=== PATIENT | female | born 2000 | race Caucasian/White ===

== ENCOUNTER 2023-05-15 07:33 | Outpatient (CLI) | payer OTHER, SELFPAY ==
--- NOTE | 2023-05-15 08:00 | CT_ITS ---
Patient: BIA BARNETT Facility:?[facility] RIS Patient ID:?[id number] Site Patient ID:?[id number]. Site :?[id number] Study:?CT-ST Neck 114CC ISOVUE 370-05/15/2023 8:31:56 AM Ordering Physician:?DR. RESENDIZ Final Report: INDICATION: Right neck mass noticed in January. Pain on and off. TECHNIQUE: CT of the neck with 114 ml iodinated contrast agent. Coronal and sagittal reconstructions are included. COMPARISON: None FINDINGS: There is a 2 x 1.2 x 2.3 cm heterogeneously enhancing right thyroid mass concerning for neoplasm. Cystic enhancing masses in the right supraclavicular region measuring up to 2.4 x 1.5 cm and 1.5 x 1.1 cm concerning for necrotic metastatic lymph nodes, potentially thyroid origin. Bulky right supraclavicular node measuring up to 3 x 2.1 cm with mild mass effect on the internal jugular vein (series 3, image 55). Bulky bilateral superior mediastinal mell masses narrows the left brachiocephalic vein,, and narrows the right internal jugular vein encases the left internal mammary artery (series 3, image 72) The oral cavity, nasopharyngeal, oropharyngeal and hypopharyngeal mucosal spaces are normal. No periapical dental disease. The supraglottic, glottic and infraglottic larynx are normal. The airway including the trachea is normal and is patent. The parotid glands, submandibular and sublingual glands are normal in appearance. The vascular structures opacify normally with contrast material. Scattered mild cervical spondylosis without significant neural foraminal stenosis. No suspicious lytic or blastic osseous lesions. Visualized paranasal sinuses and mastoid air cells are clear. Visualized orbital and intracranial contents are normal. Left nare piercing. Supraclavicular regions, mediastinum and soft tissues of the imaged chest wall are normal. Visualized portions of the upper lungs are clear. IMPRESSION: 1. 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 2. There is a 2 cm heterogeneously enhancing right thyroid mass concerning for neoplasm. 3. Bulky superior mediastinal lymphadenopathy likely represents a conglomeration of pathologic lymph nodes, as well as in the right supraclavicular region. The metastatic lymph nodes may be secondary to thyroid e cancer primary or lymphoma. The mell masses exert mass effect on the right internal jugular vein, left brachiocephalic vein, and encase the left internal mammary artery. Please note that all CT scans at this facility use dose modulation, iterative reconstruction, and/or weight-based dosing when appropriate to reduce radiation dose to as low as reasonably achievable. Dictated by Sean Aranda MD @ 05/15/2023 4:45:46 PM Signed by:?Sean Aranda MD @05/15/2023 4:45:46 PM (Electronic Signature)
== END 2023-05-15 07:34 | disposition home or self-care (01) ==
DX: R22.1 Localized swelling, mass and lump, neck (principal); D64.9 Anemia, unspecified
CPT/HCPCS: 70491; Q9967

== ENCOUNTER 2023-11-09 18:25 | Outpatient (RCR) | payer OTHER, SELFPAY ==
[2023-08-31 09:03] LABS: Hematocrit 33.7 % (33.0-51.0); Hemoglobin* 10.3 gm/dL (12.0-16.0); Immature Granulocytes Abs Auto 0.01 K/uL (0.00-0.30); Immature Granulocytes Pct Auto 0.2 %; Lymphocytes Absolute Auto 1.82 K/uL (0.90-2.90); Mean Corpuscular HGB Conc 31 gm/dL (32-36); Mean Corpuscular Hemoglobin 28 pg (26-34); Mean Corpuscular Volume 90 fL (80-100); RDW Coefficient of Variation % 14.3 % (11.5-15.5); Red Blood Count 3.75 m/uL (4.00-5.20); White Blood Count* 4.69 K/uL (4.50-11.00)
[2023-08-31 09:11] LABS: Slide Review Reflex No
[2023-09-14 13:02] LABS: Hematocrit 32.8 % (33.0-51.0); Hemoglobin* 10.4 gm/dL (12.0-16.0); Immature Granulocytes Abs Auto 0.05 K/uL (0.00-0.30); Immature Granulocytes Pct Auto 0.9 %; Lymphocytes Absolute Auto 2.36 K/uL (0.90-2.90); Mean Corpuscular HGB Conc 32 gm/dL (32-36); Mean Corpuscular Hemoglobin 28 pg (26-34); Mean Corpuscular Volume 89 fL (80-100); RDW Coefficient of Variation % 14.5 % (11.5-15.5); Red Blood Count 3.70 m/uL (4.00-5.20); White Blood Count* 5.62 K/uL (4.50-11.00)
[2023-09-14 13:16] LABS: Slide Review Reflex No
[2023-09-26 18:16] LABS: Hematocrit 30.5 % (33.0-51.0); Hemoglobin* 9.6 gm/dL (12.0-16.0); Immature Granulocytes Pct Auto 0.3 %; Mean Corpuscular HGB Conc 32 gm/dL (32-36); Mean Corpuscular Hemoglobin 28 pg (26-34); Mean Corpuscular Volume 88 fL (80-100); RDW Coefficient of Variation % 14.6 % (11.5-15.5); Red Blood Count 3.46 m/uL (4.00-5.20); White Blood Count* 3.19 K/uL (4.50-11.00)
[2023-09-26 18:26] LABS: Immature Granulocytes Abs Auto 0.00 K/uL (0.00-0.30); Lymphocytes Absolute Auto 1.70 K/uL (0.90-2.90); Slide Review Reflex No
[2023-10-13 08:52] LABS: Hematocrit 33.5 % (33.0-51.0); Hemoglobin* 10.6 gm/dL (12.0-16.0); Immature Granulocytes Abs Auto 0.04 K/uL (0.00-0.30); Immature Granulocytes Pct Auto 0.7 %; Lymphocytes Absolute Auto 1.78 K/uL (0.90-2.90); Mean Corpuscular HGB Conc 32 gm/dL (32-36); Mean Corpuscular Hemoglobin 28 pg (26-34); Mean Corpuscular Volume 88 fL (80-100); RDW Coefficient of Variation % 15.8 % (11.5-15.5); Red Blood Count 3.79 m/uL (4.00-5.20); White Blood Count* 5.52 K/uL (4.50-11.00)
[2023-10-13 08:55] LABS: Slide Review Reflex No
[2023-10-26 17:12] LABS: Hematocrit 31.0 % (33.0-51.0); Hemoglobin* 9.9 gm/dL (12.0-16.0); Immature Granulocytes Pct Auto 0.3 %; Mean Corpuscular HGB Conc 32 gm/dL (32-36); Mean Corpuscular Hemoglobin 28 pg (26-34); Mean Corpuscular Volume 87 fL (80-100); RDW Coefficient of Variation % 15.5 % (11.5-15.5); Red Blood Count 3.55 m/uL (4.00-5.20); White Blood Count* 3.01 K/uL (4.50-11.00)
[2023-10-26 17:18] LABS: Immature Granulocytes Abs Auto 0.00 K/uL (0.00-0.30); Lymphocytes Absolute Auto 1.60 K/uL (0.90-2.90); Slide Review Reflex No
[2023-11-09 18:57] LABS: Hematocrit 31.6 % (33.0-51.0); Hemoglobin* 10.0 gm/dL (12.0-16.0); Immature Granulocytes Pct Auto 0.7 %; Mean Corpuscular HGB Conc 32 gm/dL (32-36); Mean Corpuscular Hemoglobin 28 pg (26-34); Mean Corpuscular Volume 88 fL (80-100); RDW Coefficient of Variation % 15.8 % (11.5-15.5); Red Blood Count 3.59 m/uL (4.00-5.20); White Blood Count* 4.32 K/uL (4.50-11.00)
[2023-11-09 19:07] LABS: Immature Granulocytes Abs Auto 0.00 K/uL (0.00-0.30); Lymphocytes Absolute Auto 2.20 K/uL (0.90-2.90); Slide Review Reflex No
== END 2024-10-13 23:59 | disposition home or self-care (01) ==
LOC: LAB 18:25
PROVIDERS: Visit Provider Internal Medicine Hematology
DX: C81.11 Nodular sclerosis Hodgkin lymphoma, lymph nodes of head, face, and neck (principal); Z79.899 Other long term (current) drug therapy
CPT/HCPCS: 36415; 85025

== ENCOUNTER 2023-11-27 09:02 | Outpatient (CLI) | payer OTHER, SELFPAY ==
[2023-12-11 17:39] LABS: Pap Test Reviewed by Path Done
== END 2023-11-27 09:03 | disposition home or self-care (01) ==
PROVIDERS: Visit Provider Obstetrics & Gynecology
DX: Z01.419 Encounter for gynecological examination (general) (routine) without abnormal findings (principal); R63.5 Abnormal weight gain; Z12.4 Encounter for screening for malignant neoplasm of cervix
CPT/HCPCS: 84443; 87624; 87625; 88141; 88142